=== PATIENT | male | born 1995 | race Caucasian/White ===

== ENCOUNTER 2019-08-09 20:11 | Emergency (ER) | payer OTHER ==
[~2019-08-09] VITALS: Ht 177.8 cm; Wt 83.9 kg
[2019-08-09] MEDS ORDERED: ZYRTEC10 M4 PO (20:17)
[2019-08-09] MEDS ORDERED: VITAMIN C500 M2 PO (20:17)
[2019-08-09] MEDS ORDERED: VITAMIN B COMP1 EACH PO (20:18)
[2019-08-09] MEDS ORDERED: SUPER THERAVIT1 EACH PO (20:18)
[2019-08-09 20:53] LABS: ABSOLUTE NEUTROPHILS 4.4 thou/uL (1.4-8.2); BASOPHILS 0.8 % (0.0-2.0); EOSINOPHILS 2.5 % (0.0-3.0); HEMATOCRIT 45.8 % (42.0-52.0); HEMOGLOBIN 15.3 gm/dL (14.0-18.0); LYMPHOCYTES 24.5 % (24.0-44.0); MCH 30.8 pg (26.0-34.0); MCHC 33.4 g/dL (28.0-37.0); MONOCYTES 9.2 % (1.0-8.0); PLATELET COUNT 208 thou/uL (150-400); RBC 4.98 mil/uL (4.50-6.00); RDW 12.7 % (10.5-14.5)
[2019-08-09 20:56] LABS: CALCIUM 9.6 mg/dL (8.5-10.1); CREATININE 1.1 mg/dL (0.7-1.3); POTASSIUM 3.6 mmol/L (3.5-5.1)
[2019-08-09 21:02] LABS: ALBUMIN 4.7 g/dL (3.4-5.0); DIRECT BILIRUBIN 0.3 mg/dL (<0.1-0.2); TOTAL BILIRUBIN 0.7 mg/dL (<0.1-1.0); TOTAL PROTEIN 8.4 g/dL (6.4-8.2)
[2019-08-09 22:54] VITALS: BP 119/86
== END 2019-08-09 22:55 | disposition home or self-care (01) ==
LOC: ER 20:11
PROVIDERS: Nurse Practitioner
DX: R10.31 Right lower quadrant pain (principal); F12.90 Cannabis use, unspecified, uncomplicated